=== PATIENT | male | born 1970 | race Caucasian/White ===

== ENCOUNTER 2017-06-03 14:42 | Emergency (ER) | payer OTHER ==
[2012-01-12 01:40] VITALS: BMI 26.6
[2017-06-03 16:10] LABS: BASOPHILS 0.3 % (0-2); EOSINOPHILS 0.3 % (0-7); HEMOGLOBIN 14.4 g/dL (13.5-17.5); IMMATURE GRANULOCYTES 0.2 % (0-5); MCH 30.4 pg (26.0-34.0); MCHC 34.3 g/dL (31.0-37.0); MCV 88.8 fL (80.0-100.0); MEAN PLATELET VOLUME 9.4 fL (7.4-10.4); NEUTROPHILS 70.2 % (40-80); PLATELET COUNT 241 10x3/uL (130-400); RBC 4.73 10x6/uL (4.20-6.10); RDW 12.8 % (11.5-14.5); WBC 10.1 10x3/uL (4.8-10.8)
[2017-06-03 16:25] LABS: ALBUMIN 3.9 g/dL (3.4-5.0); ANION GAP 13.4 mmol/L (8-16); BILIRUBIN - TOTAL 0.52 mg/dL (0.2-1.3); CALCIUM 8.6 mg/dL (8.5-10.1); CARBON DIOXIDE 29.2 mmol/L (21.0-32.0); CREATININE - SERUM 1.3 mg/dL (0.6-1.3); POTASSIUM - SERUM 3.6 mmol/L (3.5-5.1); PROTEIN - SERUM 7.3 g/dL (6.4-8.2)
[2017-06-03 17:33] LABS: APPEARANCE HAZY (CLEAR); BILIRUBIN NEGATIVE (NEGATIVE); COLOR DK YELLOW (YELLOW); GLUCOSE NEGATIVE (NEGATIVE); KETONE NEGATIVE (NEGATIVE); NITRITE NEGATIVE (NEGATIVE); PROTEIN TRACE mg/dL (NEGATIVE); UROBILINOGEN NORMAL (NORMAL)
[2017-06-03 17:35] LABS: BACTERIA MODERATE /hpf (NONE SEEN); EPITHELIAL CELLS 0-5 /hpf (0-5); MUCUS >1+ /lpf (NONE SEEN); RED CELLS - URINE 0-5 /hpf (0-5); SPERMATOZOA PRESENT /hpf (NONE SEEN)
[2017-06-03 18:01] LABS: UDS - AMPHET NEGATIVE QUAL (NEGATIVE); UDS - BARB NEGATIVE QUAL (NEGATIVE); UDS - BENZO POSITIVE QUAL (NEGATIVE); UDS - COCAINE NEGATIVE QUAL (NEGATIVE); UDS - OPIATE POSITIVE QUAL (NEGATIVE); UDS - PCP NEGATIVE QUAL (NEGATIVE); UDS - THC POSITIVE QUAL (NEGATIVE)
== END 2017-06-03 20:02 | disposition home or self-care (01) ==
LOC: D.ER 14:42
PROVIDERS: Family Medicine
DX: F23 Brief psychotic disorder (principal); F17.200 Nicotine dependence, unspecified, uncomplicated

== ENCOUNTER 2018-06-30 11:56 | Emergency (ER) | payer OTHER ==
[~2018-06-30] VITALS: Ht 175.3 cm; Wt 95.5 kg
[2018-06-30 12:00] VITALS: Ht 175.3 cm; Wt 95.5 kg
[2018-06-30] MEDS ORDERED: METOPROLOL TART25 MG PO (12:03)
[2018-06-30] MEDS ORDERED: OMEPRAZOLE20 M1 PO (12:04)
[2018-06-30] MEDS ORDERED: XANAX0.5 MG PO (12:05)
[2018-06-30 13:02] LABS: BASOPHILS 0.5 % (0-2); EOSINOPHILS 2.7 % (0-7); HEMATOCRIT 44.7 % (42.0-54.0); HEMOGLOBIN 15.5 g/dL (13.5-17.5); IMMATURE GRANULOCYTES 0.2 % (0-5); LYMPHOCYTES 40.2 % (15-50); MCH 30.5 pg (26.0-34.0); MCHC 34.7 g/dL (31.0-37.0); MCV 87.8 fL (80.0-100.0); MEAN PLATELET VOLUME 9.5 fL (7.4-10.4); MONOCYTES 10.2 % (2-11); NEUTROPHILS 46.2 % (40-80); PLATELET COUNT 223 10x3/uL (130-400); RBC 5.09 10x6/uL (4.20-6.10); RDW 12.2 % (11.5-14.5)
[2018-06-30 13:18] LABS: ALBUMIN 3.7 g/dL (3.4-5.0); ALKALINE PHOSPHATASE 71 U/L (46-116); ALT (SGPT) 27 U/L (10-68); BILIRUBIN - TOTAL 0.26 mg/dL (0.2-1.3); CALC OSMOLALITY 281 mosm/kg (275-300); CALCIUM 8.4 mg/dL (8.5-10.1); CARBON DIOXIDE 28.4 mmol/L (21.0-32.0); CHLORIDE - SERUM 104 mmol/L (98-107); CREATININE - SERUM 1.3 mg/dL (0.6-1.3); GLUCOSE 87 mg/dL (74-106); POTASSIUM - SERUM 3.9 mmol/L (3.5-5.1); PROTEIN - SERUM 7.6 g/dL (6.4-8.2); SODIUM 141 mmol/L (136-145); UREA NITROGEN 17 mg/dL (7-18); eGFR NON AFRICAN AMERICAN 62 mL/min (90-120)
[2018-06-30 13:27] LABS: CKMB 0.7 U/L (0.0-3.6); CREATINE KINASE 155 UL (21-232)
[2018-06-30 13:28] LABS: TROPONIN-I < 0.017 ng/mL (0.000-0.060)
[2018-06-30 13:34] LABS: UDS - AMPHET NEGATIVE QUAL (NEGATIVE); UDS - BARB NEGATIVE QUAL (NEGATIVE); UDS - BENZO POSITIVE QUAL (NEGATIVE); UDS - COCAINE NEGATIVE QUAL (NEGATIVE); UDS - OPIATE NEGATIVE QUAL (NEGATIVE); UDS - PCP NEGATIVE QUAL (NEGATIVE); UDS - THC POSITIVE QUAL (NEGATIVE)
[2018-06-30 13:56] LABS: APPEARANCE CLEAR (CLEAR); BILIRUBIN NEGATIVE (NEGATIVE); COLOR YELLOW (YELLOW); GLUCOSE NEGATIVE (NEGATIVE); KETONE NEGATIVE (NEGATIVE); NITRITE NEGATIVE (NEGATIVE); PROTEIN NEGATIVE (NEGATIVE); UROBILINOGEN NORMAL (NORMAL)
[2018-06-30] MEDS ORDERED: TOPAMAX50 MG PO (14:15)
[2018-06-30 15:46] VITALS: BP 124/68
== END 2018-06-30 15:47 | disposition home or self-care (01) ==
LOC: D.ER 11:56
PROVIDERS: Emergency Medicine
DX: R55 Syncope and collapse (principal)

== ENCOUNTER 2018-09-17 13:28 | Observation (INO) | payer BC ==
[~2018-09-17] VITALS: Ht 175.3 cm; Wt 91.8 kg
[~2018-09-17 13:28] MED LIST: METOPROLOL TART25 MG PO; OMEPRAZOLE20 M1 PO; TOPAMAX50 MG PO; XANAX0.5 MG PO
[2018-09-17] MEDS ORDERED: SEROQUEL50 MG PO (13:43)
[2018-09-17] MEDS ORDERED: COZAAR25 MG PO (13:43)
[2018-09-17] MEDS ORDERED: PERPHENAZINE8 MG PO (13:43)
[2018-09-17] MEDS ORDERED: EFFEXOR37.5 MG PO (13:44)
[2018-09-17 14:19] LABS: BASOPHILS 0.2 % (0-2); EOSINOPHILS 1.8 % (0-7); HEMATOCRIT 43.8 % (42.0-54.0); HEMOGLOBIN 15.4 g/dL (13.5-17.5); IMMATURE GRANULOCYTES 0.2 % (0-5); LYMPHOCYTES 28.3 % (15-50); MCH 30.7 pg (26.0-34.0); MCHC 35.2 g/dL (31.0-37.0); MCV 87.3 fL (80.0-100.0); MEAN PLATELET VOLUME 9.5 fL (7.4-10.4); MONOCYTES 11.1 % (2-11); NEUTROPHILS 58.4 % (40-80); PLATELET COUNT 224 10x3/uL (130-400); RBC 5.02 10x6/uL (4.20-6.10); RDW 12.4 % (11.5-14.5); WBC 6.6 10x3/uL (4.8-10.8)
[2018-09-17 14:20] LABS: ALKALINE PHOSPHATASE 70 U/L (46-116); ALT (SGPT) 39 U/L (10-68); BILIRUBIN - TOTAL 0.43 mg/dL (0.2-1.3); CALC OSMOLALITY 284 mosm/kg (275-300); CALCIUM 8.8 mg/dL (8.5-10.1); CARBON DIOXIDE 28.8 mmol/L (21.0-32.0); CHLORIDE - SERUM 105 mmol/L (98-107); CREATININE - SERUM 1.2 mg/dL (0.6-1.3); GLUCOSE 103 mg/dL (74-106); POTASSIUM - SERUM 3.5 mmol/L (3.5-5.1); PROTEIN - SERUM 7.5 g/dL (6.4-8.2); SODIUM 143 mmol/L (136-145); UREA NITROGEN 13 mg/dL (7-18); eGFR NON AFRICAN AMERICAN 69 mL/min (90-120)
[2018-09-17 14:21] LABS: APTT 29.7 SECONDS (22.8-39.4); INR 1.04 (0.85-1.17); PROTIME 13.1 SECONDS (11.6-15.0)
[2018-09-17 14:31] LABS: CKMB 0.4 U/L (0.0-3.6); CREATINE KINASE 91 UL (21-232); MAGNESIUM - SERUM 2.4 mg/dL (1.8-2.4); TROPONIN-I < 0.017 ng/mL (0.000-0.060)
[2018-09-17 15:00] VITALS: BP 111/79
[2018-09-17 16:00] VITALS: BP 117/76
--- NOTE | 2018-09-17 18:00 | NUR ---
RECEIVED PT FROM ER VIA WHEELCHAIR ACCOMPANIED BY HOSPITAL STAFF AND SPOUSE. NO C/O PAIN. NO S/S OF ACUTE DISTRESS NOTED. C/O DIZZINESS WHEN STANDING, HEART PALPATATIONS. IV TO LEFT AC, SL. SITE PATENT WITHOUT REDNESS OR SWELLING. 1000 ML NORMAL SALINE BOLUS GIVEN IN ER. PT HAS HX OF HERPES OUTBREAK. PT DENIES ANYTHING FURTHER AT THIS TIME. CALL LIGHT IN REACH. SPOUSE AT BEDSIDE. WILL CONTINUE TO MONITOR.
[2018-09-17 18:25] VITALS: BP 128/87
[2018-09-17 20:58] VITALS: BP 130/80
[2018-09-18] VITALS (8 sets, daily range): BP systolic 117–142; BP diastolic 80–99; Ht 175.3 cm; Wt 91.8 kg
[2018-09-18 05:49] LABS: BASOPHILS 0.6 % (0-2); EOSINOPHILS 2.3 % (0-7); HEMATOCRIT 39.3 % (42.0-54.0); HEMOGLOBIN 13.7 g/dL (13.5-17.5); IMMATURE GRANULOCYTES 0.2 % (0-5); LYMPHOCYTES 35.3 % (15-50); MCHC 34.9 g/dL (31.0-37.0); MCV 86.2 fL (80.0-100.0); MEAN PLATELET VOLUME 9.1 fL (7.4-10.4); MONOCYTES 11.4 % (2-11); NEUTROPHILS 50.2 % (40-80); PLATELET COUNT 195 10x3/uL (130-400); RBC 4.56 10x6/uL (4.20-6.10); RDW 12.4 % (11.5-14.5); WBC 4.8 10x3/uL (4.8-10.8)
[2018-09-18 06:08] LABS: ALBUMIN 3.3 g/dL (3.4-5.0); ALKALINE PHOSPHATASE 56 U/L (46-116); ALT (SGPT) 36 U/L (10-68); CALC OSMOLALITY 279 mosm/kg (275-300); CALCIUM 8.1 mg/dL (8.5-10.1); CARBON DIOXIDE 27.2 mmol/L (21.0-32.0); CHLORIDE - SERUM 106 mmol/L (98-107); CREATINE KINASE 75 UL (21-232); CREATININE - SERUM 1.1 mg/dL (0.6-1.3); GLUCOSE 89 mg/dL (74-106); POTASSIUM - SERUM 3.8 mmol/L (3.5-5.1); PRO BNP 95 pg/mL (0-125); PROTEIN - SERUM 6.5 g/dL (6.4-8.2); SODIUM 141 mmol/L (136-145); UREA NITROGEN 13 mg/dL (7-18); eGFR NON AFRICAN AMERICAN 76 mL/min (90-120)
[2018-09-18 06:14] LABS: TROPONIN-I < 0.017 ng/mL (0.000-0.060)
--- NOTE | 2018-09-18 07:42 | NUR ---
PT IS RESTING IN BED WITH EYES OPEN. RESPIRATIONS ARE EVEN AND UNLABORED. PT DENIES PRESENCE OF PAIN AND/OR N/V AND PT DENIES PRESENCE OF DIZZINESS/LIGHTHEADEDNESS AT THIS TIME. PT DENIES PRESENCE OF CHEST PAIN. BED IS IN THE LOWEST POSITION. CALL LIGHT AND BEDSIDE TABLE ARE WITHIN REACH. SIDE RAILS X 2. BED ALARM IS ON AND WORKING. WILL CONT TO MONITOR. PT DENIES FURTHER NEEDS.
[2018-09-18 10:48] LABS: UDS - AMPHET NEGATIVE QUAL (NEGATIVE); UDS - BARB NEGATIVE QUAL (NEGATIVE); UDS - BENZO POSITIVE QUAL (NEGATIVE); UDS - COCAINE NEGATIVE QUAL (NEGATIVE); UDS - OPIATE NEGATIVE QUAL (NEGATIVE); UDS - PCP NEGATIVE QUAL (NEGATIVE); UDS - THC POSITIVE QUAL (NEGATIVE)
--- NOTE | 2018-09-18 12:28 | NUR ---
ORTHOSTATIC BP COMPLETED. SEE VITALS FLOWSHEET.
[2018-09-18 12:40] LABS: CKMB 0.5 U/L (0.0-3.6); CREATINE KINASE 91 UL (21-232); TROPONIN-I < 0.017 ng/mL (0.000-0.060)
--- NOTE | 2018-09-18 16:23 | NUR ---
PT ESCORTED FROM ROOM TO TRANSPORT HOME. PT IS AMBULATORY AND REFUSES WHEELCHAIR FOR TRANSPORTATION. PT AND PT SPOUSE DENY FURTHER NEEDS/QUESTIONS/CONCERNS AT THIS TIME.
--- NOTE | 2018-09-18 16:43 | NUR ---
DISCHARGE INSTRUCTIONS COVERED WITH PT AND PT SPOUSE. ALL QUESTIONS ANSWERED. PIV REMOVED FROM LEFT FOREARM WITH CATHETER TIP INTACT. DRESSING APPLIED. ALL DISCHARGE PAPERS SIGNED. PT AND PT SPOUSE DENY FURTHER QUESTIONS/NEEDS/CONCERNS AT THIS TIME.
== END 2018-09-18 16:55 | disposition home or self-care (01) ==
LOC: D.ER 13:28 → OBSVTIME 17:15 → D.MS 17:15
PROVIDERS: Family Medicine; ADMIT Internal Medicine Nephrology; ATTEND Internal Medicine Nephrology
DX: R55 Syncope and collapse (principal); I10 Essential (primary) hypertension; G89.4 Chronic pain syndrome; K21.9 Gastro-esophageal reflux disease without esophagitis; F32.9 Major depressive disorder, single episode, unspecified; F41.9 Anxiety disorder, unspecified